=== PATIENT | male | born 1965 | race Caucasian/White ===

== ENCOUNTER 2016-09-01 05:56 | Observation (INO) | payer OTHER ==
[~2016-09-01] VITALS: Ht 190.5 cm; Wt 101.4 kg
[~2016-09-01 05:56] MED LIST: CeFAZolin 2 GM/DEXTROSE 50 ML IV ONE; DEXAMETHASONE SOD PHOS 4 MG/ML VIAL IVP ONE; FentaNYL CITRATE-PF 100 MCG/2 ML VIAL IVP ONE; FentaNYL CITRATE-PF 250 MCG/5 ML VIAL IVP ONE; GABA-531 PO; HYDR-3971 PO; HYDROmorphone 2 MG/ML SYRINGE IVP ONE; KETAMINE HCL 50 MG/ML 10 ML VIAL IVP ONE; LIDOCAINE HCL/PF 2% 5 ML VIAL IM ONE; MIDAZOLAM HCL 2 MG/2 ML VIAL IVP ONE; ONDANSETRON HCL 4 MG/2 ML VIAL IVP ONE; PROPOFOL 1% 20 ML VIAL IVP ONE; RINGERS SOLUTION,LACTATED 1,000 ML IV ONE; SUCCINYLCHOLINE CHLORIDE 20 MG/ML 10 ML VIAL IVP ONE
[2016-09-01] MEDS ORDERED: RINGERS SOLUTION,LACTATED 1,000 ML IV ONE (06:00)
[2016-09-01] MEDS: ACETAMINOPHEN 1000 MG/ISO-OSM 100 ML IV SCH ×4 (07:00→23:46)
[2016-09-01] MEDS ORDERED: ZOLPIDEM TARTRATE 10 MG TABLET PO PRN (07:45)
[2016-09-01] MEDS ORDERED: MAG HYDROX/AL HYDROX/SIMETH 30 ML SUSP UDCUP PO PRN (07:45)
[2016-09-01] MEDS ORDERED: DEXAMETHASONE SOD PHOS 4 MG/ML VIAL IVP PRN (07:45)
[2016-09-01] MEDS ORDERED: BENZOCAINE/MENTHOL LOZENGE [8 LOZENGES/PACKET] PO PRN (07:45)
[2016-09-01] MEDS ORDERED: DiphenhydrAMINE HCL 50 MG/ML VIAL IVP PRN (07:45)
[2016-09-01] MEDS ORDERED: PROMETHAZINE HCL 25 MG/ML VIAL IM PRN (08:30)
[2016-09-01] MEDS ORDERED: HYDROmorphone 2 MG/ML SYRINGE IVP PRN (08:30)
[2016-09-01] MEDS ORDERED: MEPERIDINE-PF 25 MG/ML SYRINGE IVP PRN (08:30)
[2016-09-01] MEDS ORDERED: CYCLOBENZAPRINE HCL 10 MG TABLET PO PRN (08:30)
[2016-09-01] MEDS ORDERED: FentaNYL CITRATE-PF 100 MCG/2 ML VIAL IVP PRN (08:30)
[2016-09-01] MEDS ORDERED: ONDANSETRON HCL 4 MG/2 ML VIAL IVP PRN (08:30)
[2016-09-01] MEDS ORDERED: ZOLPIDEM TARTRATE 5 MG TABLET PO PRN (08:30)
[2016-09-01] MEDS: DOCUSATE SODIUM 100 MG CAPSULE PO SCH ×2 (09:00→19:37)
[2016-09-01] MEDS ORDERED: BUPIVACAINE LIPOSOME/PF 1.3%-13.3MG/ML SUSPENSION 20 ML VIAL INJ ONE (10:30)
[2016-09-01] MEDS ORDERED: FentaNYL CITRATE-PF 100 MCG/2 ML VIAL ONE (12:35)
[2016-09-01] MEDS ORDERED: ACETAMINOPHEN 1000 MG/ISO-OSM 100 ML IV ONE (12:42)
[2016-09-01 13:26] VITALS: BP 148/104
[2016-09-01] MEDS ORDERED: INFLUENZA VIRUS VACCINE QVS 2016-17 (3YR+)/PF 60 MCG/0.5 ML SYRINGE IM ONE (13:45)
[2016-09-01 15:30] VITALS: BP 144/81
[2016-09-01] MEDS: HYDROmorphone 2 MG/ML SYRINGE IVP PRN ×3 (16:16→23:50)
[2016-09-01 20:00] VITALS: BP 137/89
[2016-09-01] MEDS: OXYGEN THERAPY IH SCH (20:00)
[2016-09-01 23:54] VITALS: BP 130/81
[2016-09-02] MEDS: HYDROmorphone 2 MG/ML SYRINGE IVP PRN ×3 (02:24→09:36)
[2016-09-02 03:30] VITALS: BP 123/64
[2016-09-02] MEDS: ACETAMINOPHEN 1000 MG/ISO-OSM 100 ML IV SCH (05:45)
[2016-09-02] MEDS: DOCUSATE SODIUM 100 MG CAPSULE PO SCH (07:39)
[2016-09-02 08:00] VITALS: BP 119/78
[2016-09-02] MEDS: OXYGEN THERAPY IH SCH (08:00)
[2016-09-02 11:13] VITALS: BP 143/92
[2016-09-02] MEDS ORDERED: OxyCODONE HCL/ACETAMINOPHEN 10-325 MG TABLET PO PRN (13:00)
== END 2016-09-02 13:09 | disposition home or self-care (01) ==
LOC: INTOOBSV 05:56 → 4E 05:56 → MERGE 05:56
PROVIDERS: ADMIT Orthopaedic Surgery Orthopaedic Surgery of the Spine; ATTEND Orthopaedic Surgery Orthopaedic Surgery of the Spine
DX: M54.12 Radiculopathy, cervical region (principal)
CPT/HCPCS: 20930; 22551; 22853; 96374; 96375; 96376 ×2; 97116; 97162; 97165; 97530; C1713 ×3; C9290; G0238; G0378 ×2; J0131 ×2; J0330; J0690; J1100; J1170 ×2; J2250; J2405; J2704; J3010 ×2; J3490 ×2; J7120